=== PATIENT | female | born 1985 | race African-American/Black ===

== ENCOUNTER 2023-12-11 15:05 | Inpatient (IN) | payer SELFPAY ==
[~2023-12-11] VITALS: Ht 157.5 cm; Wt 70.3 kg
[2023-12-11] MEDS: CYCLOBENZAPRINE 10MG TABLET PO ONE (15:46)
[2023-12-11] MEDS: LIDOCAINE 5% PATCH TOP ONE (15:46)
[2023-12-11] MEDS: DIAZEPAM 5 MG TABLET PO ONE (17:03)
[2023-12-11] MEDS ORDERED: KETOROLAC 30MG/ML VIAL IV STA (17:44)
[2023-12-11] MEDS: KETOROLAC 30MG/ML VIAL IV ONE (18:11)
[2023-12-11 18:15] LABS: BASOPHILS % 0.6 % (0.0-2.0); EOSINOPHILS % 0.4 % (0.0-5.0); HEMATOCRIT. 35.2 % (36.0-48.0); HEMOGLOBIN. 12.2 g/dL (12.0-16.0); LYMPHOCYTES % 26.7 % (20.0-50.0); MEAN CORPUSCULAR HEMOGLOBIN 33.6 pg (28.0-32.0); MEAN CORPUSCULAR HGB CONC 34.6 g/dL (31.0-37.0); MEAN PLATELET VOLUME 7.2 fl (7.4-10.4); MONOCYTES % 7.9 % (2.0-8.0); NEUTROPHILS % 64.4 % (40.0-76.0); PLATELET 256 x1000/uL (130-400); RED BLOOD CELL COUNT 3.63 mill/uL (4.2-5.4); RED CELL DISTRIBUTION WIDTH 12.6 % (11.6-14.6); WHITE BLOOD COUNT 7.9 x1000/uL (4.5-11.0)
[2023-12-11 18:19] LABS: CHLORIDE 107 mEq/L (98-107); POTASSIUM 3.6 mEq/L (3.5-5.1); SODIUM 137 mEq/L (136-145)
[2023-12-11 18:20] LABS: CARBON DIOXIDE 26 mEq/L (21-32)
[2023-12-11 18:26] LABS: CREATININE 0.8 mg/dL (0.6-1.0); GLUCOSE 97 mg/dL (70-105); UREA NITROGEN BLOOD 8 mg/dL (9-23)
[2023-12-11 18:29] LABS: INR 0.9; PROTHROMBIN TIME 10.6 sec (9.6-11.0)
[2023-12-11 20:00] VITALS: BP 98/65; PULSE 55; RESP 18; TEMP 36.28068; O2SAT 100
[2023-12-11 21:05] VITALS: BP 111/66; PULSE 54; RESP 20; TEMP 34.55832; O2SAT 97
[2023-12-11 22:00] VITALS: BP 98/65; PULSE 59; RESP 20; TEMP 36.3068
[2023-12-11] MEDS ORDERED: ONDANSETRON HCL 4MG/2ML INJ IV PRN (23:00)
[2023-12-11] MEDS ORDERED: NALOXONE HCL 0.4MG/ML VIAL IV PRN (23:15)
[2023-12-12 08:00] VITALS: BP 100/63; PULSE 54; RESP 20; TEMP 36.3918; O2SAT 100
[2023-12-12 08:29] LABS: BASOPHILS % 0.3 % (0.0-2.0); EOSINOPHILS % 0.8 % (0.0-5.0); HEMATOCRIT. 36.6 % (36.0-48.0); HEMOGLOBIN. 12.5 g/dL (12.0-16.0); LYMPHOCYTES % 29.4 % (20.0-50.0); MEAN CORPUSCULAR HEMOGLOBIN 33.4 pg (28.0-32.0); MEAN CORPUSCULAR HGB CONC 34.1 g/dL (31.0-37.0); MEAN CORPUSCULAR VOLUME 97.9 fL (81.0-99.0); MEAN PLATELET VOLUME 7.6 fl (7.4-10.4); MONOCYTES % 12.1 % (2.0-8.0); NEUTROPHILS % 57.4 % (40.0-76.0); PLATELET 248 x1000/uL (130-400); RED BLOOD CELL COUNT 3.74 mill/uL (4.2-5.4); RED CELL DISTRIBUTION WIDTH 12.5 % (11.6-14.6); WHITE BLOOD COUNT 4.8 x1000/uL (4.5-11.0)
[2023-12-12 08:33] LABS: CARBON DIOXIDE 23 mEq/L (21-32); CHLORIDE 109 mEq/L (98-107); POTASSIUM 4.2 mEq/L (3.5-5.1); SODIUM 138 mEq/L (136-145)
[2023-12-12 08:34] LABS: CALCIUM 9.1 mg/dL (8.7-10.4)
[2023-12-12 08:39] LABS: CREATININE 0.9 mg/dL (0.6-1.0); GLUCOSE 86 mg/dL (70-105); UREA NITROGEN BLOOD 10 mg/dL (9-23)
[2023-12-12] MEDS: ENOXAPARIN 40MG/0.4ML SYR SUBCUT SCH (08:46)
[2023-12-12 12:00] VITALS: BP 139/82; PULSE 61; RESP 20; TEMP 36.16956; O2SAT 99
[2023-12-12] MEDS: HYDROCODONE/ACETAMINOPHEN 5/325MG TABLET PO PRN (14:17)
[2023-12-12 16:00] VITALS: BP 110/63; PULSE 58; RESP 20; TEMP 36.22512; O2SAT 99
[2023-12-12 20:00] VITALS: BP 113/71; PULSE 54; RESP 18; TEMP 36.50292; O2SAT 100
[2023-12-12] MEDS: GABAPENTIN 100MG CAPSULE PO SCH (21:14)
[2023-12-13] VITALS: BP 101/62; PULSE 50; RESP 18; TEMP 36.89184; O2SAT 100
[2023-12-13 04:00] VITALS: BP 104/68; PULSE 50; RESP 18; TEMP 36.6696; O2SAT 100
[2023-12-13 12:00] VITALS: BP 94/47; PULSE 78; RESP 20; TEMP 36.05844; O2SAT 99
[2023-12-13 16:00] VITALS: BP 114/48; PULSE 63; RESP 17; TEMP 36.55848; O2SAT 99
[2023-12-13 18:11] VITALS: BP 114/52; PULSE 68; TEMP 97.2; O2SAT 100
== END 2023-12-13 21:11 | disposition home or self-care (01) | DRG 347 ==
LOC: ER 15:05 → EDBEDREQ 19:18 → EDBEDREQTM 19:18 → 5WST 21:17 → 6WST 21:26
PROVIDERS: ADMIT Internal Medicine; ATTEND Internal Medicine
DX: M47.27 Other spondylosis with radiculopathy, lumbosacral region (principal); M51.379 Other intervertebral disc degeneration, lumbosacral region without mention of lumbar back pain or lower extremity pain; R26.9 Unspecified abnormalities of gait and mobility
CPT/HCPCS: 36415; 72131; 72148; 80048; 85025; 86850; 86900; 99285; J1650; J1885